=== PATIENT | male | born 1995 | race Caucasian/White ===

== ENCOUNTER 2017-09-03 15:17 | Emergency (ER) | payer SELFPAY ==
[2017-09-03 15:48] VITALS: BP 132/62; PULSE 78; RESP 20; TEMP 98.8; O2SAT 95
[2017-09-03] MEDS ORDERED: predniSONE 20 MG TAB PO ONE (16:45)
[2017-09-03] MEDS ORDERED: AZITHROMYCIN 250 MG TAB PO ONE (16:45)
[2017-09-03] MEDS ORDERED: LIDOCAINE 1%/EPINEPHrine 1:100,000 SOLN 50 ML VIAL INFIL ONE (16:45)
--- NOTE | 2017-09-03 16:46 | PD ---
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 He denies significant wheezing, the cough is productive and worse at night. He has had fevers and night sweats again worse at night with a high of 103. He comes in today as he just is not feeling better. He denies pleuritic pain. He is a non-smoker. He denies history of asthma or COPD. No nausea, vomiting, or diarrhea. No significant chest pain. No allergies. PFSH Past Medical History Medical History: Denies Significant Hx Tetanus Vaccination: Unknown Past Surgical History Appendectomy: Yes Social History Alcohol Use: Yes Tobacco Use: No Substance Use: No Allergies-Medications (Allergen,Severity, Reaction): Coded Allergies: No Known Allergies (Unverified Adverse Reaction, Unknown, 09/03/17) Reported Meds & Prescriptions Reported Meds & Active Scripts Active No Active Prescriptions or Reported Medications Review of Systems Except as stated in HPI: all other systems reviewed are Neg General / Constitutional: Positive: Fever, Chills Eyes: No: Visual changes HENT: No: Headaches, Vertigo, Lightheadedness, Sore Throat, Rhinitis, Rhinorrhea, Congestion, Nosebleed, Neck Stiffness, Neck Pain, Dental Difficulties, Earache Cardiovascular: No: Chest Pain or Discomfort Respiratory: Positive: Cough, Shortness of Breath, Night Sweats, No: Wheezing, Sneezing, Orthopnea, Hemoptysis, Stridor, Pleuritic Pain Gastrointestinal: No: Nausea, Vomiting, Diarrhea, Abdominal Pain Genitourinary: No: Dysuria Musculoskeletal: No: Pain Skin: No Rash Neurologic: No: Weakness Psychiatric: No: Depression Endocrine: No: Polydipsia Hematologic/Lymphatic: No: Easy Bruising Physical Exam Narrative GENERAL: Patient appears ill but not septic. It is noted his O2 sat is 95% on room air SKIN: Warm and dry. Decreased pallor. Normal turgor HEAD: Atraumatic. Normocephalic. EYES: Pupils equal and round. No scleral icterus. No injection or drainage. ENT: No nasal bleeding or discharge. Mucous membranes pink and moist. Pharynx is clear. Airways patent. TMs are clear bilaterally. No sinus tenderness. NECK: Trachea midline. Supple and nontender CARDIOVASCULAR: Regular rate and rhythm. RESPIRATORY: No accessory muscle use. Wheezes and mild rhonchi in the left lower lobe to auscultation. Breath sounds equal bilaterally. GASTROINTESTINAL: Abdomen soft, non-tender, nondistended. Hepatic and splenic margins not palpable. MUSCULOSKELETAL: Extremities without clubbing, cyanosis, or edema. No obvious deformities. NEUROLOGICAL: Awake and alert. No obvious cranial nerve deficits. Motor grossly within normal limits. Five out of 5 muscle strength in the arms and legs. Normal speech. PSYCHIATRIC: Appropriate mood and affect; insight and judgment normal. Data Data Last Documented VS Vital Signs Date Time Temp Pulse Resp B/P (MAP) Pulse Ox O2 Delivery O2 Flow Rate FiO2 09/03/17 15:48 98.8 78 20 132/62 (85) 95 Orders Orders Chest, Pa & Lat (09/03/17 16:10) Azithromycin (Zithromax) (09/03/17 16:45) Ceftriaxone Inj (Rocephin Inj) (09/03/17 16:45) Lidocai-Epi 1%-1:100,000 Inj (Xylocaine- (09/03/17 16:45) Prednisone (Deltasone) (09/03/17 16:45) MDM Medical Decision Making Medical Screen Exam Complete: Yes Emergency Medical Condition: Yes Differential Diagnosis Fevers. Upper respiratory infection. Pneumonia. Bronchitis Narrative Course Chest x-ray is ordered. Chest x-ray shows mild consolidation in the left lower lobe consistent with pneumonia. Patient is given Rocephin 1000 mg IM. Patient is given 500 mg azithromycin p.o. now Patient is given prednisone 40 mg p.o. now. Patient continued on azithromycin 500 mg daily for the next 3 days. Patient continued on prednisone 20 g daily for the next 5 days. Patient is given albuterol metered-dose inhaler to be used 2 puffs every 4-6 hours as needed. Patient is to rest, push fluids, and return if symptoms do not improve or worsen as needed Diagnosis Primary Impression: Left lower lobe pneumonia Qualified Codes: J18.1 - Lobar pneumonia, unspecified organism Patient Instructions: Azithromycin (By mouth), Ceftriaxone (By injection), General Instructions, How to Use a Breath-Activated Inhaler (GEN), Prednisone ( By mouth) Additional Instructions: Chest x-ray shows mild consolidation in the left lower lobe consistent with pneumonia. Patient is given Rocephin 1000 mg IM. Patient is given 500 mg azithromycin p.o. now Patient is given prednisone 40 mg p.o. now. Patient continued on azithromycin 500 mg daily for the next 3 days. Patient continued on prednisone 20 g daily for the next 5 days. Patient is given albuterol metered-dose inhaler to be used 2 puffs every 4-6 hours as needed. Patient is to rest, push fluids, and return if symptoms do not improve or worsen as needed Med/Other Pt SpecificInfo: Prescription(s) given Scripts No Active Prescriptions or Reported Meds Disposition: 01 DISCHARGE HOME Condition: Stable Osmani Nicole Sep 03, 2017 16:46
[2017-09-03] MEDS ORDERED: PRED20 PO (16:47)
[2017-09-03] MEDS ORDERED: VENTAER INH (16:47)
[2017-09-03] MEDS ORDERED: AZIT500T2 PO (16:47)
--- NOTE | 2017-09-03 16:48 | RADRPT ---
EXAM DATE/TIME: 09/03/2017 16:26 [facility] COMPARISON: No previous studies available for comparison. INDICATIONS : Short of breath. Chest tightness. MEDICAL HISTORY : None. SURGICAL HISTORY : None. ENCOUNTER: Initial ACUITY: 1 day PAIN SCORE: 6/10 LOCATION: Bilateral chest FINDINGS: PA and lateral views of the chest demonstrate the lungs to be symmetrically aerated without evidence of mass, infiltrate or effusion. The cardiomediastinal contours are unremarkable. Osseous structure s are intact. CONCLUSION: No acute disease. Brice Ayala MD FACR on September 03, 2017 at 16:46 Board Certified Radiologist. This report was verified electronically.
== END 2017-09-03 17:20 | disposition home or self-care (01) ==
LOC: NEPK 15:17
DX: J18.9 Pneumonia, unspecified organism (principal)
CPT/HCPCS: 71046; 96372; 99284; J0696; J7512